=== PATIENT | male | born 1985 | race African-American/Black ===

== ENCOUNTER 2019-03-30 20:01 | Emergency (ER) | payer MEDICAID ==
[~2019-03-30] VITALS: Ht 175.3 cm; Wt 79.5 kg
[2019-03-30 20:19] VITALS: BP 137/79
--- NOTE | 2019-03-30 21:03 | RAD ---
EXAM: AP, oblique and lateral views right ankle DATE: 03/30/2019 8:25 PM INDICATION: Right ankle pain, post op right ankle infection COMPARISON: No Prior FINDINGS: Chronic changes right ankle joint with chronic fixation medial malleolus. There is tibiotalar effacement with talar collapse and mild fragmentation and deformity of the distal tibia. Tibiofibular syndesmotic bony bridging is seen moderate soft tissue swelling about the right ankle. Marked osteopenia. IMPRESSION: Chronic changes right ankle with collapse and fragmentation of the talus and distal tibia. No obvious acute fracture identified Marked osteopenia. Electronically signed by: Davi Persaud MD (03/30/2019 9:00 PM) [id number]
--- NOTE | 2019-03-30 21:30 | PHYS DOC ---
Past Medical History Smoking Status: Current Every Day Smoker Alcohol Use: Heavy (QUYNH DOHERTY APRN) Attending Signature I have participated in the care of this patient and I have reviewed and agree with all pertinent clinical information above including history, exam, and recommendations. (SARA WHITING MD) Adult General Chief Complaint Chief Complaint: ANKLE PROBLEM HPI HPI Patient is a 34 year old male who presents complaining of moderate right ankle pain. Patient reports the pain is chronic, he reports he was being arrested today and complained of right ankle pain and was sent to [facility]. He reports he injured his ankle several times and has been following up with an orthopedic doctor at [facility] [[email or web address]] who has done several surgeries. Patient describes the pain as throbbing and worse on weight bearing. He is on the phone laughing and talking away with his friends. (QUYNH DOHERTY APRN) Review of Systems Review of Systems Constitutional: Denies fever or chills [] Musculoskeletal: reports right ankle pain Integument: Denies rash or skin lesions [] Neurologic: Denies headache, focal weakness or sensory changes [] All other systems were reviewed and found to be within normal limits, except as documented in this note. (QUYNH DOHERTY APRN) Allergies Allergies Allergies Coded Allergies Type Severity Reaction Last Updated Verified Penicillins Allergy Unknown 03/30/19 Yes (SARA WHITING MD) Physical Exam Physical Exam Constitutional: Well developed, well nourished, no acute distress, non-toxic appearance. [] Skin: Warm, dry, no erythema, no rash. [] Back: No tenderness, no CVA tenderness. [] Extremities: right ankle with moderate swelling, it appears chronically deformed. There is an open wound approximately 2 x 2 centimeters on the right lateral ankle which patient reports is chronic and he is following up with an orthopedic doctor for it. Limited range of motion to the right ankle. +2 right pedal pulse. Cap refill less than 2 seconds the right toes. Neurologic: Alert and oriented X 3, normal motor function, normal sensory function, no focal deficits noted. [] Psychologic: Affect normal, judgement normal, mood normal. [] (QUYNH DOHERTY APRN) Current Patient Data Vital Signs Vital Signs Date Time Temp Pulse Resp B/P (MAP) Pulse Ox O2 Delivery O2 Flow Rate FiO2 03/30/19 20:19 98.5 95 20 137/79 (98) 97 Room Air 98.5 (SARA WHITING MD) EKG EKG [] (QUYNH DOHERTY APRN) Radiology/Procedures Radiology/Procedures []PROCEDURE: ANKLE RIGHT 3V EXAM: AP, oblique and lateral views right ankle DATE: 03/30/2019 8:25 PM INDICATION: Right ankle pain, post op right ankle infection COMPARISON: No Prior FINDINGS: Chronic changes right ankle joint with chronic fixation medial malleolus. There is tibiotalar effacement with talar collapse and mild fragmentation and deformity of the distal tibia. Tibiofibular syndesmotic bony bridging is seen moderate soft tissue swelling about the right ankle. Marked osteopenia. IMPRESSION: Chronic changes right ankle with collapse and fragmentation of the talus and distal tibia. No obvious acute fracture identified Marked osteopenia. Electronically signed by: Davi Persaud MD (03/30/2019 9:00 PM) [id number] DICTATED and SIGNED BY: DAVI PERSAUD MD DATE: 03/30/192099 (QUYNH DOHERTY APRN) Course & Med Decision Making Course & Med Decision Making Pertinent Labs and Imaging studies reviewed. (See chart for details) This is a 34-year-old male patient presented to the ED today with right ankle pain that is chronic but reported today what he was being arrested. Right ankle x-rays interpreted by radiologist were negative for any acute findings, there were noted for chronic changes right ankle with collapse and fragmentation of the talus and distal tibia.Marked osteopenia. Patient was discharged to home to follow-up with his orthopedic doctor at [facility] [[email or web address] (QUYNH DOHERTY APRN) Dragon Disclaimer Dragon Disclaimer This electronic medical record was generated, in whole or in part, using a voice recognition dictation system. (QUYNH DOHERTY APRN) Departure Departure Impression: Primary Impression: Pain in right ankle Disposition: 01 HOME, SELF-CARE Condition: STABLE Referrals: NO PCP (PCP) Follow-up with your surgeon at [facility] [[email or web address]] Patient Instructions: Ankle Pain Additional Instructions: You were seen for right ankle pain. Please continue following up with your surgeon at [facility] [[email or web address]]. Problem Qualifiers Primary Impression: Pain in right ankle Chronicity: acute Qualified Codes: M25.571 - Pain in right ankle and joints of right foot QUYNH DOHERTY APRN Mar 30, 2019 21:30 SARA WHITING MD Mar 31, 2019 02:49
== END 2019-03-30 21:49 | disposition home or self-care (01) ==
LOC: ER 20:01
DX: M25.571 Pain in right ankle and joints of right foot (principal); G89.29 Other chronic pain; F17.200 Nicotine dependence, unspecified, uncomplicated; F10.20 Alcohol dependence, uncomplicated; Y90.9 Presence of alcohol in blood, level not specified; Z88.0 Allergy status to penicillin
CPT/HCPCS: 73610; 99284